=== PATIENT | female | born 1930 | race Caucasian/White ===

== ENCOUNTER 2021-02-10 10:52 | Emergency (ER) | payer BC, OTHER ==
[~2021-02-10] VITALS: Ht 167.6 cm; Wt 54.4 kg
[2021-02-10 14:28] VITALS: BP 128/78
== END 2021-02-10 14:32 | disposition home or self-care (01) ==
LOC: ER 10:52 → EDBD 10:52 → EDUNIT# 10:52 → ER 14:31
DX: S09.90XA Unspecified injury of head, initial encounter (principal); I12.9 Hypertensive chronic kidney disease with stage 1 through stage 4 chronic kidney disease, or unspecified chronic kidney disease; N18.9 Chronic kidney disease, unspecified; I25.10 Atherosclerotic heart disease of native coronary artery without angina pectoris; Z90.49 Acquired absence of other specified parts of digestive tract; Z88.1 Allergy status to other antibiotic agents; Z95.1 Presence of aortocoronary bypass graft; Z90.710 Acquired absence of both cervix and uterus; W01.0XXA Fall on same level from slipping, tripping and stumbling without subsequent striking against object, initial encounter; Y93.89 Activity, other specified; Y92.89 Other specified places as the place of occurrence of the external cause; Y99.8 Other external cause status
CPT/HCPCS: 70450; 72125; 93005